=== PATIENT | female | born 1960 | race Caucasian/White ===

== ENCOUNTER 2018-04-30 22:51 | Emergency (ER) | payer OTHER ==
[~2018-04-30] VITALS: Ht 170.2 cm; Wt 79.8 kg
[2018-04-30] MEDS ORDERED: SYNTHROID100 MC1 PO (23:10)
[2018-05-01] MEDS ORDERED: NORCO 5-325 TA1 EACH PO (00:48)
[2018-05-01 01:01] VITALS: BP 108/77
== END 2018-05-01 01:02 | disposition home or self-care (01) ==
LOC: M.ERS 22:51
DX: S42.021A Displaced fracture of shaft of right clavicle, initial encounter for closed fracture (principal); W10.8XXA Fall (on) (from) other stairs and steps, initial encounter; Y93.89 Activity, other specified; Y92.89 Other specified places as the place of occurrence of the external cause; Y99.8 Other external cause status